=== PATIENT | male | born 1995 | race Caucasian/White ===

== ENCOUNTER 2017-10-01 07:41 | Inpatient (IN) | payer OTHER ==
[~2017-10-01] VITALS: Ht 177.8 cm; Wt 66.2 kg
--- NOTE | 2017-10-01 12:43 | NUR ---
PRE ADMISSION Pt received in intake office. Pt 22 y/o male alert and oriented to name, place, and time. Perrla. Skin warm and moist to touch. Respirations even and unlabored. Bilateral hand tremors noted. Pt appears anxious with pressured speech and continuous foot tapping noted. Pt appears slightly disheveled. Educated pt on unit rules with acknowledgement. DO=382/70 P=108 T=98.0 R=17 O2=96%@RA. Pt denies any medical history. Pt states NKA. Pt also denies any history of sz activity. No distress noted at this time.
--- NOTE | 2017-10-01 12:46 | NUR ---
ADMISSION Pt 22 y/o male admitted for fentanyl/ heroin dependence. Pt states lives with family( mother). Pt states he is tired of this lifestyle and wants to give it up. Pt alert and oriented to name, place, and time. Perrla. Skin warm and moist to touch. Bilateral lung sounds clear in both inspiration and expiration. Respirations even and unlabored. Bilateral hand tremors noted. Pt appears anxious with pressured speech and continuous foot tapping noted. Pt appears slightly disheveled. Educated pt on unit rules with acknowledgement. FA=861/70 P=108 T=98.0 R=17 O2=96%@RA. Pt denies any medical history. Pt states NKA. Pt also denies any history of sz activity. Initial cows=10. Pt was seen by . Pt started on a prn subutex. Pt denies any history of sz. Pt states does not have pcp. Oriented pt to room and unit. No distress noted at this time. Skin clear. substance history: - heroin smoke 0.5-1gm daily x 6 months. Last used 09/27/17 0.5gm. total 5 years - fentanyl smoke 0.5-1gm daily x 2 months. Last used 09/30/17 0.5gm. total 2 months treatment history [facility] 12/2016
[2017-10-01 14:08] LABS: *AMPHETAMINE, URINE NEGATIVE (NEGATIVE); *BARBITURATE, URINE NEGATIVE (NEGATIVE); *CANNABINOID, URINE NEGATIVE (NEGATIVE); *COCCAINE, URINE NEGATIVE (NEGATIVE); *OPIATE, URINE NEGATIVE (NEGATIVE); *PHENCYCLIDINE SCREEN,URINE NEGATIVE (NEGATIVE)
[2017-10-01] MEDS ORDERED: MAG HYDROX/AL HYDROX/SIMETH 30 ML LIQUID UDC PO PRN (14:15)
[2017-10-01] MEDS ORDERED: DOCUSATE SODIUM 250 MG CAPSULE PO PRN (14:15)
[2017-10-01] MEDS ORDERED: DICYCLOMINE HCL 20 MG TABLET PO PRN (14:15)
[2017-10-01] MEDS ORDERED: LOPERAMIDE HCL 2 MG CAPSULE PO PRN ×2 (14:15)
[2017-10-01] MEDS ORDERED: BUPRENORPHINE HCL 2 MG TAB.SUBL SL PRN (14:15)
[2017-10-01] MEDS ORDERED: MAGNESIUM HYDROXIDE 30 ML LIQUID UDC PO PRN (14:15)
[2017-10-01] MEDS ORDERED: NICOTINE POLACRILEX 4 MG GUM-PK OF TEN BC PRN (14:15)
[2017-10-01] MEDS ORDERED: HYDROXYZINE PAMOATE 25 MG CAPSULE PO PRN (14:15)
[2017-10-01] MEDS ORDERED: ONDANSETRON 4 MG/2 ML VIAL IM PRN (14:15)
[2017-10-01] MEDS ORDERED: ONDANSETRON ODT 4 MG TAB.RAPDIS SL PRN (14:15)
[2017-10-01] MEDS ORDERED: ACETAMINOPHEN 325 MG TABLET PO PRN (14:15)
[2017-10-01] MEDS ORDERED: MIRALAX 17 GM POWD.PACK PO PRN (14:15)
[2017-10-01] MEDS ORDERED: NICOTINE 14 MG/24HR PATCH TD PRN (14:15)
[2017-10-01] MEDS: IBUPROFEN 600 MG TABLET PO PRN (14:30)
[2017-10-01] MEDS: CLONIDINE HCL 0.1 MG TABLET PO PRN (14:30)
[2017-10-01] MEDS: METHOCARBAMOL 750 MG TABLET PO PRN (14:30)
--- NOTE | 2017-10-01 14:36 | NUR ---
PRN pt states feels anxious. Catapres po prn per MD order given and tolerated well.
--- NOTE | 2017-10-01 14:36 | NUR ---
PRN Pt states feels nauseous. Zofran odt prn per MD order given and tolerated well.
--- NOTE | 2017-10-01 14:37 | NUR ---
PRN Pt with c/o general body aches 04/10. Robaxin po prn per MD order given and tolerated well.
--- NOTE | 2017-10-01 14:37 | NUR ---
PRN Pt with c/o body pain /. Motrin po prn per MD order given and tolerated well.
--- NOTE | 2017-10-01 15:26 | NUR ---
PRN Pt with cows=17. Subutex 4mg sL prn per MD order given and tolerated well.
[2017-10-01 15:28] LABS: BASOPHILS % (AUTO) 0.2 % (0.0-2.0); EOSINOPHILS % (AUTO) 0.1 % (0.0-7.0); HEMATOCRIT 44.3 % (40-50); HEMOGLOBIN 15.4 G/DL (14.0-18.0); LYMPHOCYTES # (AUTO) 0.9 K/UL (0.8-4.8); LYMPHOCYTES % (AUTO) 8.6 % (20.5-51.5); MEAN CORPUSCULAR HEMOGLOBIN 29.5 UUG (27.0-31.0); MEAN CORPUSCULAR HGB CONC 35 g/dL (32.0-37.0); MEAN CORPUSCULAR VOLUME 84.6 FL (82.0-92.0); MONOCYTES # (AUTO) 0.2 K/UL (0.1-1.30); MONOCYTES % (AUTO) 2.2 % (0.0-11.0); NEUTROPHILS # (AUTO) 9.5 K/UL (1.8-8.9); NEUTROPHILS % (AUTO) 88.9 % (38.5-71.5); PLATELET COUNT (AUTO) 191 K/UL (150-450); RED BLOOD CELL COUNT(AUTO) 5.24 MIL/UL (4.7-6.1); WHITE BLOOD COUNT (AUTO) 10.6 K/UL (4.0-11.2)
[2017-10-01 15:31] LABS: ALANINE AMINOTRANSFERASE 32 U/L (16-63); ALKALINE PHOSPHATASE 50 U/L (50-136); ASPARTATE AMINOTRANSFERASE 18 U/L (15-37); BILIRUBIN,TOTAL 0.6 mg/dL (0.2-1.0); CARBON DIOXIDE 24 mmol/L (21-32); CHLORIDE 104 mmol/L (98-107); GLUCOSE 195 mg/dL (74-106); MAGNESIUM 1.7 mg/dL (1.8-2.4); TOTAL PROTEIN, SERUM 7.2 g/dL (6.4-8.2); UREA NITROGEN, BLOOD 10 mg/dL (7-18)
--- NOTE | 2017-10-01 15:36 | NUR ---
PRN BELLE Pt still feels slightly anxious.
--- NOTE | 2017-10-01 15:36 | NUR ---
PRN EVAL pt states no more nausea.
--- NOTE | 2017-10-01 15:37 | NUR ---
PRN BELLE Pt states body pain 02/08
--- NOTE | 2017-10-01 15:37 | NUR ---
PRN EVAL Pt state body aches 02/08.
[2017-10-01 15:38] LABS: ETHANOL < 3 MG/DL (0-0)
--- NOTE | 2017-10-01 16:26 | NUR ---
PRN EVAL pt with cows=8.
[2017-10-01] MEDS: BUPRENORPHINE HCL 2 MG TAB.SUBL SL SCH ×2 (17:12→20:38)
[2017-10-01 17:32] VITALS: BP 119/74
[2017-10-01 20:00] VITALS: BP 115/76
--- NOTE | 2017-10-01 20:00 | NUR ---
Start of Shift Notes Received a 22 y/o male admitted on 10/01/2017 for fentanyl/ heroin dependence. Px alert and oriented to name, place, and time. Perrla. Skin warm and moist to touch. Px denies any medical history. Px has NKA, on regular diet and on Full Code. During the rounds at 2000, px complained of restless legs, body aches 6/10, and anxiety is on the moderate side. Safety measures observe. Bed locked on lowest position, side rails up 2x, call light within reach. We'll continue to monitor.
[2017-10-01] MEDS: GABAPENTIN 300 MG CAPSULE PO SCH (20:38)
[2017-10-01] MEDS ORDERED: MAGNESIUM OXIDE 400 MG TABLET PO ONE (21:00)
[2017-10-01] MEDS ORDERED: LORAZEPAM 1 MG TABLET PO ONE (21:00)
[2017-10-01] MEDS ORDERED: GABAPENTIN 300 MG CAPSULE PO SCH (21:00)
[2017-10-02] VITALS: BP 123/60
[2017-10-02] MEDS: diphenhydrAMINE 50 MG CAPSULE PO PRN (01:19)
[2017-10-02] MEDS: LORAZEPAM 1 MG TABLET PO PRN ×2 (01:20→12:13)
--- NOTE | 2017-10-02 01:20 | NUR ---
PRN meds Px complained of high anxiety and restlessness and stated that he wanted to sleep. Ativan 1 mg/tab, 2 tabs and Benadryl 50 mg/cap, 1 cap given PO as PRN meds. We'll continue to monitor.
[2017-10-02 04:00] VITALS: BP 120/61
--- NOTE | 2017-10-02 04:00 | NUR ---
COWS deferred COWS deferred due to the px is asleep. To assess if the px is awake per doctor's order. We'll continue to monitor.
[2017-10-02 07:06] LABS: HEPATITIS B SURFACE AG Negative (Negative)
--- NOTE | 2017-10-02 07:19 | NUR ---
End of Shift Notes 22 y/o male admitted on 10/01/2017 for fentanyl/ heroin dependence. Px alert and oriented to name, place, and time. Perrla. Skin warm and moist to touch. Px denies any medical history. Px has NKA, on regular diet and on Full Code. During the shift, px complained of restless legs, body aches 6/10, and anxiety is on the moderate side. At 0120, Px complained of high anxiety and restlessness and stated that he wanted to sleep. Ativan 1 mg/tab, 2 tabs and Benadryl 50 mg/cap, 1 cap given PO as PRN meds. Oral intake of 1,400 ml, voided 3x, no BM. Slept for 4 hour. Safety measures observe. Bed locked on lowest position, side rails up 2x, call light within reach. We'll continue to monitor.
--- NOTE | 2017-10-02 07:30 | NUR ---
START OF SHIFT Pt 22 y/o male admitted for fentanyl / heroin dependence. Pt received in room on bed with eyes closed resting, but easily arousable to name. Perrla. Pt alert and oriented to name, place, and time. Perrla. Skin warm and moist to touch. Respirations even and unlabored. Bilateral hand tremors noted. It was reported that pt slept for 4 hours last night. Bed on lowest position with side rails x2 up for safety. Call light within reach. No distress noted at this time.
[2017-10-02 08:24] VITALS: BP 111/62
[2017-10-02] MEDS: BUPRENORPHINE HCL 2 MG TAB.SUBL SL SCH ×3 (08:26→20:40)
[2017-10-02] MEDS: METHOCARBAMOL 750 MG TABLET PO PRN (08:26)
[2017-10-02] MEDS: GABAPENTIN 300 MG CAPSULE PO SCH ×3 (08:27→20:39)
[2017-10-02] MEDS: IBUPROFEN 600 MG TABLET PO PRN (08:27)
--- NOTE | 2017-10-02 08:35 | NUR ---
PRN Pt states has generalized body aches 6/10. Robaxin po prn per MD order given and tolerated well.
--- NOTE | 2017-10-02 08:36 | NUR ---
PRN Pt states has body pain 5/10. MOtrin po prn per MD order given and tolerated well.
[2017-10-02] MEDS ORDERED: TUBERCULIN,PURIF.PROT.DERIV. 5 TU/0.1 ML TEST ID ONE (09:00)
--- NOTE | 2017-10-02 09:35 | NUR ---
PRN EVAL Pt states body aches 12/11.
--- NOTE | 2017-10-02 09:36 | NUR ---
PRN BELLE Pt states pain 12/11.
[2017-10-02] MEDS: CLONIDINE HCL 0.1 MG TABLET PO PRN (12:13)
--- NOTE | 2017-10-02 12:16 | NUR ---
PRN Pt states feels anxious and uneasy. Ativan po prn per MD order given and tolerated well.
--- NOTE | 2017-10-02 12:18 | NUR ---
PRN Pt states has body aches 6/10. Tylenol po prn per MD order given and tolerated well.
--- NOTE | 2017-10-02 12:19 | NUR ---
PRN Pt states still feels anxious. Catapres po prn per MD order given and tolerated well.
[2017-10-02 12:29] VITALS: BP 133/78
--- NOTE | 2017-10-02 13:16 | NUR ---
DEEPAK ODONNELL Pt observed sitting in recreation room. No distress noted at this time.
--- NOTE | 2017-10-02 13:18 | NUR ---
PRN BELLE Pt states pain 12/11.
--- NOTE | 2017-10-02 13:19 | NUR ---
PRN BELLE Pt observed in recreation room sitting. No distress noted at this time.
[2017-10-02 16:00] VITALS: BP 126/91
--- NOTE | 2017-10-02 18:06 | NUR ---
END OF SHIFT Pt 22 y/o male admitted for fentanyl/heroin dependence. Pt alert and oriented to name, place, and time. Perrla. Skin warm and moist touch. Respirations even and unlabored. Bilateral hand tremors noted. Pt was seen by MD today. Pt observed mostly isolative to room throughout the day. Pt medication compliant and tolerated well. No ASE noted. Bed on lowest position with side rails x2 up for safety. Call light within reach. No distress noted at this time.
--- NOTE | 2017-10-02 19:30 | NUR ---
START OF SHIFT Received report from day shift nurse.Pt 22 is y/o male admitted for fentanyl/heroin dependence. Pt alert and oriented to name, place, and time. Perrla. Skin warm and moist touch. Respirations even and unlabored. Pt was mostly isolative to room throughout the day.Pt denies any PMH. Pt is medication compliant and tolerating meds well. No A/R noted. Last COWS=3.Bed is locked in lowest position with side rails up x 2 up x 2. Call light within reach.Will continue to monitor.
[2017-10-02 20:00] VITALS: BP 141/84
[2017-10-02] MEDS ORDERED: LORAZEPAM 1 MG TABLET PO ONE (21:00)
[2017-10-03] VITALS: BP 138/78
[2017-10-03] MEDS: diphenhydrAMINE 50 MG CAPSULE PO PRN (01:06)
[2017-10-03] MEDS: LORAZEPAM 1 MG TABLET PO PRN (01:07)
--- NOTE | 2017-10-03 01:08 | NUR ---
PRN MEDS PRN ATIVAN 2 MG PO GIVEN FOR INCREASE ANXIETY/AGITATION,PT HAS BEEN PACING ANXIOUSLY,UNABLE TO REST AND SLEEP.PRN BENADRYL GIVEN TO HELP SLEEP.WILL MONITOR FOR EFFECTIVENESS.
--- NOTE | 2017-10-03 02:00 | NUR ---
PRN F/U PT RESTING COMFORTABLY IN BED WITH EYES CLOSED,IN DEEP SLEEP.NO S/S OF DISTRESS NOTED.
[2017-10-03 04:00] VITALS: BP 133/71
--- NOTE | 2017-10-03 04:00 | NUR ---
COWS DEFERRED D/T PT BEING ASLEEP.
--- NOTE | 2017-10-03 06:37 | NUR ---
END OF SHIFT Pt 22 is y/o male admitted for fentanyl/heroin dependence. Pt denies any PMH. Pt is medication compliant and tolerating meds well.Pt continues on Subutex taper as ordered and is tolerating well. No A/R noted. Last COWS=6 at mid night.PRN Ativan and Benadryl were given and were effective.Pt slept 5 hrs,fluid intake was 1,000 mls,voided x 1..Bed is locked in lowest position with side rails up x 2 up x 2. Call light within reach.No s/s of distress noted at this time.
--- NOTE | 2017-10-03 07:30 | NUR ---
start of shift note: received pt from shift leader nurse, pt is in stable condition no s/s of pain or discomfort. pt is admitted to [facility] for opiate withdrawal/dependence. pt's last cows 6. pt slept for 5 hrs. will continue to monitor pt for any changes and continue to meet pt's needs
[2017-10-03] MEDS: GABAPENTIN 300 MG CAPSULE PO SCH ×2 (08:16→21:08)
[2017-10-03 09:00] VITALS: BP 110/71
[2017-10-03] MEDS ORDERED: BUPRENORPHINE HCL 2 MG TAB.SUBL SL SCH (09:00)
[2017-10-03] MEDS: BUPRENORPHINE HCL 2 MG TAB.SUBL SL SCH ×2 (14:40→21:08)
[2017-10-03 15:08] VITALS: BP 124/68
[2017-10-03 17:32] VITALS: BP 112/65
--- NOTE | 2017-10-03 18:51 | NUR ---
end of shift note: pt is in stable condition no s/s of pain or discomfort, pt is admitted to [facility] for opiate withdrawal/dependence. pt's last cows 2. pt tolerating taper well. pt joined all groups and activities throughout the shift. will endorse pt to overnight caregiver nurse
--- NOTE | 2017-10-03 19:30 | NUR ---
START OF SHIFT Pt 22 is y/o male admitted for fentanyl/heroin dependence. Pt denies any PMH. Pt is medication compliant and tolerating meds well.Pt continues on Subutex taper as ordered and is tolerating well. No A/R noted. Last COWS=2.Bed is locked in lowest position with side rails up x 2 . Call light within reach.No s/s of distress noted at this time,received in stable condition,will continue to monitor.
[2017-10-03 20:00] VITALS: BP 141/94
[2017-10-04] VITALS: BP 139/88
[2017-10-04] MEDS: IBUPROFEN 600 MG TABLET PO PRN ×2 (04:20→09:57)
--- NOTE | 2017-10-04 06:17 | NUR ---
END OF SHIFT Pt 22 is y/o male admitted for fentanyl/heroin dependence. Pt denies any PMH. Pt is medication compliant and tolerating meds well.Pt continues on Subutex taper as ordered and is tolerating well. No A/R noted. Last COWS=3.No PRN meds given this shift.Pt slept 5 hrs; fluid intake was 750 mls; voided x 2 .Bed is locked in lowest position with side rails up x 2 . Call light within reach.No s/s of distress noted at this time, pt is in stable condition..Care endorsed to Charge nurse.
[2017-10-04 06:57] LABS: CREATININE 0.9 mg/dL (0.6-1.3); PHOSPHOROUS 5.2 mg/dL (2.5-4.9); POTASSIUM 3.8 mmol/L (3.5-5.1)
--- NOTE | 2017-10-04 07:30 | NUR ---
start of shift note: received pt from car shifter nurse, pt is in stable condition at this time, no s/s of pain or discomfort. pt is admitted to [facility] for opiate withdrawal/dependence. pt's last cows 3. pt tolerated taper well. no A.R to medications. will continue to monitor pt for any changes.
[2017-10-04] MEDS: BUPRENORPHINE HCL 2 MG TAB.SUBL SL SCH ×3 (08:32→21:35)
[2017-10-04] MEDS: GABAPENTIN 300 MG CAPSULE PO SCH ×3 (08:33→21:35)
--- NOTE | 2017-10-04 09:57 | NUR ---
PRN administration: pt with complaints of headache pain level 7/10, motrin was administered , will re-assess effectiveness of medication
[2017-10-04 10:49] VITALS: BP 140/89
[2017-10-04 13:51] VITALS: BP 148/78
[2017-10-04 17:05] VITALS: BP 129/83
--- NOTE | 2017-10-04 18:56 | NUR ---
end of shift note: pt is in stable condition no s/s of pain or discomfort. pt's last cows 2. pt tolerated taper medications well. no A/R noted. pt is admitted to [facility] for opiate withdrawal/dependence. pt attended all groups and activities throughout the shift. will endorse pt to operations supervisor 2nd shift nurse.
--- NOTE | 2017-10-04 19:15 | NUR ---
START OF SHIFT Patient is a 22-year-old male admitted on 10/01/17 for heroin and fentanyl dependence. Patient denies any past medical history, with exception to previous right hand surgery. Patient is FULL code, NKA, and on regular diet. Patient is on a 5-day Subutex taper, tolerating well. Upon assessment, patient alert and oriented x4, respirations even and unlabored, patient reports mild headache at this time. Patient is on fall and seizure precautions. Safety measures in place, bed locked in low position, side rails up x2, call light within reach. Will continue to monitor.
[2017-10-04 20:00] VITALS: BP 110/83
[2017-10-04] MEDS: diphenhydrAMINE 50 MG CAPSULE PO PRN (22:40)
--- NOTE | 2017-10-04 22:40 | NUR ---
PRN BENADRYL Patient reports inability to sleep, is requesting aid. PRN Benadryl given PO. Patient's respirations are even and unlabored. Safety measures in place, bed locked in low position, side rails up x2, call light within reach. Will reassess in one hour.
--- NOTE | 2017-10-04 23:40 | NUR ---
PRN BENADRYL REASSESSMENT Patient is resting in bed with eyes closed, respirations even and unlabored. PRN Benadryl effective. Safety measures in place, will continue to monitor.
[2017-10-05] VITALS: BP 112/58
--- NOTE | 2017-10-05 | NUR ---
MIDNIGHT COWS DEFERRED Midnight COWS deferred due to patient asleep; to be assessed and scored while patient is awake per protocol. Respirations are 16/min, even and unlabored. Safety measures in place, bed locked in low position, side rails up x2, call light within reach. Will continue to monitor.
[2017-10-05 04:00] VITALS: BP 122/72
--- NOTE | 2017-10-05 04:00 | NUR ---
4AM COWS DEFERRED 4AM COWS deferred due to patient asleep; to be assessed and scored while patient is awake per protocol. Respirations are 16/min, even and unlabored. Safety measures in place, bed locked in low position, side rails up x2, call light within reach. Will continue to monitor.
--- NOTE | 2017-10-05 07:20 | NUR ---
END OF SHIFT Patient is a 22-year-old male admitted on 10/01/17 for heroin and fentanyl dependence. Patient denies any past medical history, with exception to previous right hand surgery. Patient is FULL code, NKA, and on regular diet. Patient is on a 5-day Subutex taper, tolerating well. Patient slept 8 hours, total intake 1,500 mL, void x4, stool x0. Patient received PRN Benadryl at 2240 for difficulty sleeping; PRN was effective. Last COWS score was 2. Patient is on fall and seizure precautions. Safety measures in place, bed locked in low position, side rails up x2, call light within reach. Will endorse to day shift.
--- NOTE | 2017-10-05 07:30 | NUR ---
Start of shift note; Received report from night nurse. Patient is a 22 year old male admitted on 10/01/17 for Opiate dependence. Patient was placed on a Subutex taper. Patient is on full code status, NKA on a regular diet. Patient reported history of right hand surgery. NKA, full code status on a regular diet. Patient slept for 8 hours. Last COWS of 2. All safety measures secured. Will continue to monitor patient.
[2017-10-05 08:00] VITALS: BP 112/67
[2017-10-05] MEDS: GABAPENTIN 300 MG CAPSULE PO SCH ×3 (08:47→21:41)
[2017-10-05] MEDS ORDERED: BUPRENORPHINE HCL 2 MG TAB.SUBL SL SCH (09:00)
[2017-10-05 12:00] VITALS: BP 134/83
[2017-10-05 16:00] VITALS: BP 128/73
[2017-10-05] MEDS ORDERED: HYDR-3895 PO (18:32)
[2017-10-05] MEDS ORDERED: METH-406 PO (18:32)
[2017-10-05] MEDS ORDERED: GABA-534 PO (18:32)
[2017-10-05] MEDS ORDERED: CLON0.1T14 PO (18:32)
[2017-10-05] MEDS ORDERED: IBUP-1955 PO (18:32)
--- NOTE | 2017-10-05 18:32 | NUR ---
End of shift note; Patient is AOX4. Patient is a 22 year old male admitted on 10/01/17 for Opiate dependence. Patient was placed on a Subutex taper. Patient is on full code status, NKA on a regular diet. Patient reported history of right hand surgery. NKA, full code status on a regular diet. Patient remained compliant with treatment plan and medication regime. Medications were effective in reducing withdrawal symptoms. All safety measures secured. Met all needs.
[2017-10-05 20:00] VITALS: BP 131/75
--- NOTE | 2017-10-05 20:00 | NUR ---
START OF SHIFT NOTE RECEIVED REPORT FROM DAY SHIFT NURSE. PATIENT IS A 22 YEAR OLD MALE ADMITTED FOR FENTANYL/HEROIN DEPENDENCE. PATIENT COMPETED 4 DAY SUBUTEX TAPER. PATIENT IS MEDICALLY CLEARED TO BE DISCHARGE TOMORROW. PATIENT REPORTS NO SEIZURE HISTORY. PATIENT COMPLIANT WITH MEDICATION AND TREATMENT PLAN. SKIN INTACT. PATIENT DID NOT REQUIRE ANY PRN MEDICATION. LAST COWS 2. RECEIVED PATIENT ALERT AND ORIENTED X 4. RESPIRATION EVEN AND UNLABORED. PATIENT STATES HES ANXIOUS DUE TO HIM LEAVING. NO N/V. DENIES ANY PAIN. ON FALL PRECAUTION. SAFETY MEASURES IN PLACE. CALL LIGHT IN REACH. WILL CONTINUE TO MONITOR
[2017-10-05] MEDS: diphenhydrAMINE 50 MG CAPSULE PO PRN (22:28)
--- NOTE | 2017-10-05 22:28 | NUR ---
PRN BENADRYL ADMINISTRATION PATIENT REQUESTS FOR SLEEP AID. PRN BENADRYL GIVEN. WILL MONITOR FOR EFFECTIVENESS
--- NOTE | 2017-10-05 23:28 | NUR ---
DEEPAK FERGUSON RE-ASSESSMENT PATIENT ASLEEP AT THIS TIME. NO S/S OF DISTRESS. WILL CONTINUE TO MONITOR
--- NOTE | 2017-10-06 | NUR ---
COWS DEFERRED PATIENT SLEEPING . COWS DEFERRED. RESPIRATION EVEN AND UNLABORED. SAFETY MEASURES IN PLACE. CALL LIGHT IN REACH. WILL CONTINUE TO MONITOR.
--- NOTE | 2017-10-06 04:00 | NUR ---
COWS DEFERRED PATIENT SLEEPING . COWS DEFERRED. RESPIRATION EVEN AND UNLABORED. SAFETY MEASURES IN PLACE. CALL LIGHT IN REACH. WILL CONTINUE TO MONITOR.
--- NOTE | 2017-10-06 06:58 | NUR ---
END OF SHIFT NOTE PATIENT IS A 22 YEAR OLD MALE ADMITTED FOR FENTANYL/HEROIN DEPENDENCE. PATIENT COMPETED 4 DAY SUBUTEX TAPER. PATIENT IS MEDICALLY CLEARED TO BE DISCHARGE TODAY . PATIENT REPORTS NO SEIZURE HISTORY. PATIENT COMPLIANT WITH MEDICATION AND TREATMENT PLAN. SKIN INTACT. PATIENT WAS GIVEN PRN BENADRYL FOR SLEEP. PATIENT REMAIN ALERT AND ORIENTED X 4. RESPIRATION EVEN AND UNLABORED. PATIENT WAS ANXIOUS BEGINNING OF SHIFT. ON FALL PRECAUTION. SAFETY MEASURES IN PLACE. CALL LIGHT IN REACH. WILL CONTINUE TO MONITOR. SLEPT 7 HOURS. FLUID INTAKE 1,000 ML. VOIDED X 3. NO BM. LAST COWS 2.
[2017-10-06 08:00] VITALS: BP 150/78
--- NOTE | 2017-10-06 08:00 | NUR ---
START OF SHIFT: RECEIVED PT A/O X 4. HIS TAPER IS COMPLETED AND HE STATES HE FEELS GOOD ABOUT MOVING FORWARD WITH RECOVERY PROCESS.. COWS 1. HE REPORTS MILD ANXIETY BUT STATES THE DETOX MEDS WERE EFFECTIVE. WILL CONTINUE WITH SCHEDULED MEDS AND DISCHARGE PROCESS.
[2017-10-06] MEDS: GABAPENTIN 300 MG CAPSULE PO SCH (08:28)
--- NOTE | 2017-10-06 09:19 | NUR ---
D/C NOTE Pt is A/O x4. V/S remain WNL. Pt denies SI/HI or hallucinations. Pt shows no s/s of acute withdrawal at this time, and is stable. has medically cleared pt for d/c. Education on Hepatitis C, smoking cessation and medication side effects provided. Pt verbalizes understanding. All pt belongings are in belonging bag, including prescriptions, pt did not have any home medications. Refuses FLU/PNU vaccination. Pt is being accompanied by [facility] at this time to be transported to rehab. All needs met.
== END 2017-10-06 09:19 | disposition other institution (70) | DRG 895 ==
LOC: SRC 12:21
PROVIDERS: ADMIT Internal Medicine; ATTEND Internal Medicine
PROC: HZ2ZZZZ Detoxification Services for Substance Abuse Treatment (ICD-10-PCS; principal; 2017-10-01)
PROC: HZ41ZZZ Group Counseling for Substance Abuse Treatment, Behavioral (ICD-10-PCS; 2017-10-02)
PROC: HZ31ZZZ Individual Counseling for Substance Abuse Treatment, Behavioral (ICD-10-PCS; 2017-10-02)
DX: F11.23 Opioid dependence with withdrawal (principal); E83.42 Hypomagnesemia; F17.210 Nicotine dependence, cigarettes, uncomplicated; Z81.1 Family history of alcohol abuse and dependence; R73.9 Hyperglycemia, unspecified; Z91.89 Other specified personal risk factors, not elsewhere classified
CPT/HCPCS: 36415; 70030-TC; 80307; 83735; 84100; 85025; 86580; 86592; 86705; 86803; 87340; 87806; G0480; Q0162; Q0163